=== PATIENT | male | born 1985 | race Caucasian/White ===

== ENCOUNTER 2017-02-04 18:30 | Emergency (ER) | payer OTHER ==
[2017-02-04 18:40] VITALS: BP 127/81
--- NOTE | 2017-02-04 20:47 | ED PDOC ---
Arrival/HPI - General Chief Complaint: Dental Pain Time Seen by Provider: 02/04/17 19:21 Historian: Patient - History of Present Illness Narrative History of Present Illness (Text): 02/04/17 20:00 A 31 year old male, whose past medical history includes old mandible injury, presents to the emergency department complaining of intermittent pain to left- side of mandible, specifically angle of jaw. Patient reports pain has been on and off for the past month. Patient denies any trauma, mouth pain, toothache, fever, or any other complaints. Patient mentions when yawning, discomfort occurs. Patient able to open and close mouth. PMD: Dr. Rocha Time/Duration: Other (month) Symptom Course: Intermittent Activities at Onset: Light Context: Home Past Medical History - Provider Review Nursing Documentation Reviewed: Yes - Cardiac Hx Cardiac Disorders: No - Pulmonary Hx Respiratory Disorders: No - Neurological Hx Neurological Disorder: No - HEENT Hx HEENT Disorder: Yes Other/Comment: L JAW FX - Renal Hx Renal Disorder: No - Endocrine/Metabolic Hx Endocrine Disorders: No - Hematological/Oncological Hx Blood Disorders: No - Integumentary Hx Dermatological Disorder: No - Musculoskeletal/Rheumatological Hx Musculoskeletal Disorders: No - Gastrointestinal Hx Gastrointestinal Disorders: No - Genitourinary/Gynecological Hx Genitourinary Disorders: No - Psychiatric Hx Psychophysiologic Disorder: No Hx Substance Use: No - Surgical History Other/Comment: L JAW R/T FX Family/Social History - Physician Review Nursing Documentation Reviewed: Yes Family/Social History: No Known Family HX Smoking Status: Never Smoked Hx Alcohol Use: No Hx Substance Use: No Allergies/Home Meds Allergies/Adverse Reactions: Allergies No Known Allergies Allergy (Verified 02/04/17 18:34) Review of Systems - Physician Review All systems were reviewed & negative as marked: Yes - Review of Systems Constitutional: absent: Fevers Musculoskeletal: Other (intermittent left side mandible pain; no mouth pain or toothache) Physical Exam Vital Signs Reviewed: Yes Vital Signs Temp Pulse Resp BP Pulse Ox 02/04/17 23:24 18 99 02/04/17 23:19 98.9 F 99 H 18 99 02/04/17 18:34 99.0 F 103 H 16 127/81 95 Temperature: Afebrile Blood Pressure: Normal Pulse: Regular Respiratory Rate: Normal Appearance: Positive for: Well-Appearing Pain Distress: None Mental Status: Positive for: Alert and Oriented X 3 - Systems Exam Head: No: Tenderness (no palpable tenderness to facial mandible area) Pupils: Present: PERRL Extroacular Muscles: Present: EOMI Conjunctiva: Present: Normal Mouth: Present: Other (patient ) Neck: Present: Normal Range of Motion Respiratory/Chest: Present: Clear to Auscultation, Good Air Exchange. No: Respiratory Distress, Accessory Muscle Use Cardiovascular: Present: Regular Rate and Rhythm, Normal S1, S2. No: Murmurs Abdomen: Present: Normal Bowel Sounds. No: Tenderness, Distention, Peritoneal Signs Back: Present: Normal Inspection Upper Extremity: Present: Normal Inspection. No: Cyanosis, Edema Lower Extremity: Present: Normal Inspection. No: Edema Neurological: Present: GCS=15, CN II-XII Intact, Speech Normal Skin: Present: Warm, Dry, Normal Color. No: Rashes Psychiatric: Present: Alert, Oriented x 3, Normal Insight, Normal Concentration Medical Decision Making ED Course and Treatment: 02/04/17 23:25 Impression: 31 year old male presents complaining of intermittent pain to the left-sided mandible, specifically angle of jaw for the past month. Plan: -- CT Maxillofacial w/o contrast -- Toradol -- Reassess and disposition Progress Notes: EXAM: CT Maxillofacial Without Intravenous Contrast Dictated and Authenticated by: Lani Reddy MD 02/04/2017 9:58 PM IMPRESSION: No acute fracture - RAD Interpretation Radiology Orders: 02/04/17 19:45 MAXILLOFACIAL W/O CONTRAST [CT] Stat - Medication Orders Current Medication Orders: Discontinued Medications Ketorolac Tromethamine (Toradol) 60 mg IM ONCE ONE Stop: 02/04/17 22:12 Last Admin: 02/04/17 23:16 Dose: 60 mg MAR Pain Assessment Document 02/04/17 23:16 [email or web address] (Rec: 02/04/17 23:18 [email or web address] [facility] [id number]) Pain Reassessment Is this a pain reassessment? No Sleep Is patient sleeping during reassessment? No Presence of Pain Presence of Pain Yes Pain Scale Used Pain Scale Used Numeric Location Pain Location Body Site Jaw Description Description Constant Pain Behavior Facial Grimacing Aggravating Factors Changing Position Alleviating Factors/Management Position Change Techniques Alleviating Factors Medication IM Administration Charges Document 02/04/17 23:16 [email or web address] (Rec: 02/04/17 23:18 [email or web address] [facility] [id number]) Injection Site MAR Injection Site Right Deltoid Charges for Administration # of IM Administrations 1 - Scribe Statement The provider has reviewed the documentation as recorded by the Jose Alejandro Sarmiento Provider Scribe Attestation: All medical record entries made by the Scribe were at my direction and personally dictated by me. I have reviewed the chart and agree that the record accurately reflects my personal performance of the history, physical exam, medical decision making, and the department course for this patient. I have also personally directed, reviewed, and agree with the discharge instructions and disposition. Disposition/Present on Arrival - Present on Arrival Any Indicators Present on Arrival: No History of DVT/PE: No History of Uncontrolled Diabetes: No Urinary Catheter: No History of Decub. Ulcer: No History Surgical Site Infection Following: None - Disposition Have Diagnosis and Disposition been Completed?: Yes Diagnosis: Mandible pain Disposition: HOME/ ROUTINE Disposition Time: 23:16 Patient Plan: Discharge Condition: GOOD Additional Instructions: Avoid any yawning or abrupt exagerated opening/closing of mouth/take meds as prescribed/follow up with your doctor this week Prescriptions: Naproxen [Naprosyn] 500 mg PO BID PRN #14 tab PRN Reason: Pain Referrals: Linn Rocha MD [Primary Care Provider] - Follow up with primary Walker Mesa DO [Staff Provider] - Follow up with primary Forms: [facility] (Slovak)
--- NOTE | 2017-02-04 21:59 | CT ---
EXAM: CT Maxillofacial Without Intravenous Contrast EXAM DATE/TIME: 02/04/2017 7:45 PM CLINICAL HISTORY: 31 years old, male; Injury or trauma; Fall; Initial encounter; Blunt trauma (contusions or hematomas); Jaw; Left; Additional info: Left mandible pain/distant past HX. Of FX. TECHNIQUE: Axial computed tomography images of the face without intravenous contrast. All CT scans at this facility use one or more dose reduction techniques, viz.: automated exposure control; ma/kV adjustment per patient size (including targeted exams where dose is matched to indication; i.e. head); or iterative reconstruction technique. Coronal and sagittal reformatted images were created and reviewed. COMPARISON: There are no prior studies for comparison. FINDINGS: Bones/joints: There are no acute facial bone fractures. Visualized cervical spine is unremarkable. Soft tissues: There is right facial soft tissue edema. Lymph nodes: There is no pathologic adenopathy. Orbits: Orbital contents are unremarkable. Salivary glands: Parotid and submandibular glands are unremarkable. Sinuses: There is no acute sinusitis. Ears and mastoids: Middle ears and mastoids are unremarkable. Brain: No focal abnormalities are seen in visualized portion of the brain. Airway: Airway is unremarkable. IMPRESSION: No acute fracture
[2017-02-04 23:19] VITALS: PULSE 99; RESP 18; TEMP 98.9; O2SAT 99
== END 2017-02-04 23:24 | disposition home or self-care (01) ==
LOC: ED 18:30
DX: R68.84 Jaw pain (principal)
CPT/HCPCS: 70486; 96372; 99282; J1885